=== PATIENT | female | born 1955 | race Caucasian/White ===

== ENCOUNTER → 2020-04-26 | Outpatient (CLI) | payer OTHER | LOC: EXRD 13:57 | DX: M31.30 Wegener's granulomatosis without renal involvement (principal) | CPT/HCPCS: 71046 ==

== ENCOUNTER → 2020-07-20 | Outpatient (CLI) | payer OTHER | LOC: OPSV 11:00 | DX: M81.0 Age-related osteoporosis without current pathological fracture (principal) | CPT/HCPCS: 96372 ==

== ENCOUNTER → 2021-01-29 | Outpatient (CLI) | payer OTHER ==
[~2021-01-29] VITALS: Ht 165.1 cm; Wt 68.0 kg
== END ==
LOC: OPSV 09-28 13:00
DX: M81.0 Age-related osteoporosis without current pathological fracture (principal)
CPT/HCPCS: 96372